=== PATIENT | female | born 1960 | race African-American/Black ===

== ENCOUNTER 2020-11-02 04:18 | Day surgery (SDC) | payer OTHER ==
[2020-10-30 14:52] VITALS: BMI 34.9
[2020-11-02] MEDS ORDERED: BUPIVACAINE HCL 50 ML ONE (08:50)
[2020-11-02] MEDS ORDERED: BUPIVACAINE HCL/PF 0.75% 10 ML VIAL ONE (08:50)
[2020-11-02] MEDS ORDERED: DEXAMETHASONE SOD PHOSPHATE 4 MG/1 ML VIAL ONE (08:50)
[2020-11-02] MEDS ORDERED: LIDOCAINE HCL/PF 1% SDV 5ML VIAL ONE (08:50)
[2020-11-02] MEDS ORDERED: BUPIVACAINE HCL/PF 0.75% 10 ML VIAL NR ONE (13:00)
[2020-11-02] MEDS ORDERED: LIDOCAINE HCL 1% PRESERVATIVE FREE - 30ML VIAL IJ ONE (13:00)
[2020-11-02 14:01] VITALS: BP 138/78; PULSE 84; TEMP 97.8
== END 2020-11-02 14:03 | disposition home or self-care (01) ==
LOC: JASU-SURG 04:18
PROVIDERS: ATTEND Pain Medicine Pain Medicine
PROC: 3E0T33Z Introduction of Anti-inflammatory into Peripheral Nerves and Plexi, Percutaneous Approach (ICD-10-PCS; 2020-11-02)
PROC: BR16YZZ Fluoroscopy of Lumbar Facet Joint(s) using Other Contrast (ICD-10-PCS; 2020-11-02)
PROC: 3E0T3BZ Introduction of Anesthetic Agent into Peripheral Nerves and Plexi, Percutaneous Approach (ICD-10-PCS; principal; 2020-11-02 13:00)
DX: M53.3 Sacrococcygeal disorders, not elsewhere classified (principal)
CPT/HCPCS: 76000-TC-FY

== ENCOUNTER 2020-12-28 04:14 | Day surgery (SDC) | payer OTHER ==
[2020-12-25 11:14] VITALS: BMI 36.5
[~2020-12-28 04:14] MED LIST: LIDOCAINE HCL 1% PRESERVATIVE FREE - 30ML VIAL IJ ONE; TRIAMCINOLONE ACET 40MG/1ML VIAL IM ONE
[2020-12-28] MEDS ORDERED: TRIAMCINOLONE ACET 40MG/1ML VIAL ONE (07:11)
[2020-12-28] MEDS ORDERED: BUPIVACAINE HCL 50 ML ONE (07:11)
[2020-12-28] MEDS ORDERED: LIDOCAINE HCL/PF 1% SDV 5ML VIAL ONE (07:11)
[2020-12-28] MEDS ORDERED: SODIUM CHLORIDE 0.9% P/F 10 ML VIAL IJ ONE (07:31)
[2020-12-28] MEDS ORDERED: LIDOCAINE HCL 1% PRESERVATIVE FREE - 30ML VIAL IJ ONE ×2 (08:23)
[2020-12-28] MEDS ORDERED: TRIAMCINOLONE ACET 40MG/1ML VIAL IM ONE ×3 (08:24→08:30)
[2020-12-28] MEDS ORDERED: BUPIVACAINE HCL/PF 0.75% 10 ML VIAL PNB ONE ×2 (08:25→08:31)
[2020-12-28 08:48] VITALS: TEMP 97.7
[2020-12-28 09:15] VITALS: BP 151/71; PULSE 79
== END 2020-12-28 09:16 | disposition home or self-care (01) ==
LOC: JASU-SURG 04:14
PROVIDERS: ATTEND Pain Medicine Pain Medicine
PROC: 3E0U3BZ Introduction of Anesthetic Agent into Joints, Percutaneous Approach (ICD-10-PCS; principal; 2020-12-28 08:00)
DX: M53.3 Sacrococcygeal disorders, not elsewhere classified (principal)
CPT/HCPCS: 76000-TC-FY

== ENCOUNTER 2021-01-18 04:15 | Day surgery (SDC) | payer OTHER ==
[2021-01-17 11:20] VITALS: BMI 35.7
[2021-01-18] MEDS ORDERED: BUPIVACAINE HCL 50 ML ONE (07:32)
[2021-01-18] MEDS ORDERED: TRIAMCINOLONE ACET 40MG/1ML VIAL ONE (08:16)
[2021-01-18] MEDS ORDERED: BUPIVACAINE HCL/PF 0.75% 10 ML VIAL ONE (12:37)
[2021-01-18] MEDS ORDERED: IOHEXOL 180 MG/1 ML ML IJ ONE (12:45)
[2021-01-18] MEDS ORDERED: BUPIVACAINE HCL/PF 0.75% 10 ML VIAL NR ONE (12:50)
[2021-01-18 14:39] VITALS: BP 129/70; PULSE 92; TEMP 98.4
== END 2021-01-18 14:40 | disposition home or self-care (01) ==
LOC: JASU-SURG 04:15
PROVIDERS: ATTEND Pain Medicine Pain Medicine
PROC: 015R3ZZ Destruction of Sacral Nerve, Percutaneous Approach (ICD-10-PCS; principal; 2021-01-18 14:00)
DX: M53.3 Sacrococcygeal disorders, not elsewhere classified (principal)
CPT/HCPCS: 76000-TC-FY

== ENCOUNTER 2021-03-01 04:28 | Day surgery (SDC) | payer OTHER ==
[2021-02-28 17:04] VITALS: BMI 36.5
[~2021-03-01 04:28] MED LIST changes: +BUPIVACAINE HCL/PF 0.75% 10 ML VIAL NR ONE; +IOHEXOL 180 MG/1 ML ML IJ ONE; +LIDOCAINE 1% P/F 10 MG/ML VIAL INF ONE; -LIDOCAINE HCL 1% PRESERVATIVE FREE - 30ML VIAL IJ ONE; -TRIAMCINOLONE ACET 40MG/1ML VIAL IM ONE
[2021-03-01] MEDS ORDERED: BUPIVACAINE HCL/PF 0.75% 10 ML VIAL ONE (07:34)
[2021-03-01] MEDS ORDERED: BUPIVACAINE HCL/PF 0.5% (5MG/ML) 10 ML VIAL ONE (07:34)
[2021-03-01] MEDS ORDERED: IOHEXOL 180 MG/1 ML ML IJ ONE ×2 (13:31)
[2021-03-01] MEDS ORDERED: LIDOCAINE 1% P/F 10 MG/ML VIAL INF ONE (13:34)
[2021-03-01] MEDS ORDERED: TRIAMCINOLONE ACET 40MG/1ML VIAL NR ONE (13:36)
[2021-03-01] MEDS ORDERED: BUPIVACAINE HCL/PF 0.5% (5MG/ML) 10 ML VIAL NR ONE ×2 (13:36)
[2021-03-01 14:25] VITALS: BP 129/86; PULSE 90; TEMP 97.5
== END 2021-03-01 14:26 | disposition home or self-care (01) ==
LOC: JASU-SURG 04:28
PROVIDERS: ATTEND Pain Medicine Pain Medicine
PROC: 3E0U3BZ Introduction of Anesthetic Agent into Joints, Percutaneous Approach (ICD-10-PCS; 2021-03-01)
PROC: 3E0U33Z Introduction of Anti-inflammatory into Joints, Percutaneous Approach (ICD-10-PCS; principal; 2021-03-01 13:30)
DX: M53.3 Sacrococcygeal disorders, not elsewhere classified (principal)
CPT/HCPCS: 76000-TC-FY

== ENCOUNTER 2021-04-11 15:07 | Emergency (ER) | payer OTHER ==
[2021-04-11 15:19] VITALS: BP 148/88; PULSE 85; TEMP 98.5; BMI 38.0
[2021-04-11] MEDS ORDERED: DIPHTH,PERTUSS(ACELL),TET 0.5 ML DISP.SYRIN IM ONE ×2 (15:40→16:02)
== END 2021-04-11 16:27 | disposition home or self-care (01) ==
LOC: JERFT 15:07
PROC: 3E0234Z Introduction of Serum, Toxoid and Vaccine into Muscle, Percutaneous Approach (ICD-10-PCS; principal; 2021-04-11)
DX: S91.332A Puncture wound without foreign body, left foot, initial encounter (principal)
CPT/HCPCS: 90471; 90715; 99284-25

== ENCOUNTER 2021-05-03 04:38 | Day surgery (SDC) | payer OTHER ==
[2021-05-01 15:53] VITALS: BMI 38.0
[2021-05-03] MEDS ORDERED: BUPIVACAINE HCL/PF 0.75% 10 ML VIAL ONE (07:40)
[2021-05-03] MEDS ORDERED: LIDOCAINE HCL/PF 1% SDV 5ML VIAL ONE ×2 (07:40→14:15)
[2021-05-03] MEDS ORDERED: DEXAMETHASONE SOD PHOSPHATE 10 MG/1 ML VIAL ONE (14:15)
[2021-05-03] MEDS ORDERED: LIDOCAINE HCL/PF 2% SDV 5ML VIAL ONE (14:17)
[2021-05-03] MEDS ORDERED: IOHEXOL 180 MG/1 ML ML IJ ONE (15:02)
[2021-05-03] MEDS ORDERED: LIDOCAINE HCL/PF 2% SDV 5ML VIAL INF ONE (15:03)
[2021-05-03] MEDS ORDERED: LIDOCAINE HCL 1% PRESERVATIVE FREE - 30ML VIAL IJ ONE (15:03)
[2021-05-03] MEDS ORDERED: DEXAMETHASONE SOD PHOSPHATE 10 MG/1 ML VIAL IVPUSH ONE (15:04)
[2021-05-03] MEDS ORDERED: BUPIVACAINE HCL/PF 0.75% 10 ML VIAL NR ONE (15:05)
[2021-05-03] MEDS ORDERED: PANTOPRAZOLE 40 MG TABLET ONE ×2 (15:56→16:01)
[2021-05-03] MEDS ORDERED: PANTOPRAZOLE 40 MG TABLET PO ONE ×2 (16:00)
[2021-05-03 16:20] VITALS: BP 139/77; PULSE 97; TEMP 98
== END 2021-05-03 16:15 | disposition home or self-care (01) ==
LOC: JASU-SURG 04:38
PROVIDERS: ATTEND Pain Medicine Pain Medicine
PROC: 3E0T3TZ Introduction of Destructive Agent into Peripheral Nerves and Plexi, Percutaneous Approach (ICD-10-PCS; principal; 2021-05-03 14:15)
DX: M47.816 Spondylosis without myelopathy or radiculopathy, lumbar region (principal)
CPT/HCPCS: 76000-TC-FY; 82962; J1100

== ENCOUNTER → 2021-07-16 | Day surgery (SDC) | payer OTHER ==
[~2021-07-16] MED LIST changes: +BUPIVACAINE HCL/PF 0.5% (5MG/ML) 10 ML VIAL ONE; -BUPIVACAINE HCL/PF 0.75% 10 ML VIAL NR ONE; -IOHEXOL 180 MG/1 ML ML IJ ONE; -LIDOCAINE 1% P/F 10 MG/ML VIAL INF ONE
== END | disposition home or self-care (01) ==
LOC: JASU-SURG 04:33
PROVIDERS: ATTEND Pain Medicine Pain Medicine
DX: Z53.8 Procedure and treatment not carried out for other reasons (principal)